=== PATIENT | female | born 1960 | race Two or more races ===

== ENCOUNTER 2023-05-28 03:38 | Observation (INO) | payer OTHER ==
[~2023-05-28] VITALS: Ht 170.2 cm; Wt 72.6 kg
[~2023-05-28 03:38] MED LIST: ASPI325 PO; LISI5 PO; PENVK500 PO; SULTRIDS PO; TRAM50 PO
[2023-05-28 04:22] LABS: BASOPHILS ABSOLUTE AUTO 0.06 K/mm3 (0.00-0.23); BASOPHILS PERCENT AUTO 1 % (0-2); EOSINOPHILS ABSOLUTE AUTO 0.07 K/mm3 (0.00-0.68); EOSINOPHILS PERCENT AUTO 1 % (0-6); Hematocrit 40.2 % (33.0-51.0); Hemoglobin 13.6 g/dL (11.5-16.0); Mean Corpuscular HGB 35.1 pg (26.0-34.0); Mean Corpuscular HGB Conc 33.8 g/dL (31.5-36.5); Mean Corpuscular Volume 104 fL (80-100); Mean Platelet Volume 11.4 fL (9.1-12.4); Platelet Count 113 K/mm3 (150-400); RDW Coefficient Variation 13.1 % (11.7-14.2); RDW Standard Deviation 50.1 fL (35.1-46.3); Red Blood Cell Count 3.87 M/mm3 (3.80-5.20); White Blood Cell Count 9.29 K/mm3 (4.00-11.30)
[2023-05-28 04:37] LABS: IMMATURE GRAN ABSOLUTE AUTO 0.02 K/mm3 (0.00-0.10); IMMATURE GRAN PERCENT AUTO 0 % (0-1); LYMPHOCYTES ABSOLUTE AUTO 4.86 K/mm3 (0.84-5.20); LYMPHOCYTES PERCENT AUTO 52 % (21-46); MONOCYTES PERCENT AUTO 10 % (4-13); NEUTROPHILS ABSOLUTE AUTO 3.38 K/mm3 (1.96-9.15); NEUTROPHILS PERCENT AUTO 36 % (41-73)
[2023-05-28 04:56] LABS: Ethanol (Alcohol), Blood, Med <3 mg/dL; Salicylate 2.6 mg/dL (2.8-20.0); Thyroxine (T4) 17.1 ug/dL (4.8-13.9)
[2023-05-28 05:03] LABS: Acetaminophen, Random <2.0 ug/mL (10.0-30.0); Alanine Aminotransfer (ALT/SGP 122 U/L (12-78); Albumin, Blood 3.8 g/dL (3.4-5.0); Albumin/Globulin Ratio 0.8 (0.8-1.8); Alk Phos 120 U/L (50-136); Anion Gap 8 mmol/L (6-16); Aspartate Aminotrans (AST/SGOT 140 U/L (12-37); Bilirubin, Total 1.6 mg/dL (0.1-1.0); Blood Urea Nitrogen 17 mg/dL (8-24); Bun/Creatinine Ratio 18.3 (12.0-20.0); CO2, Blood 26 mmol/L (21-32); Calcium, Blood 8.9 mg/dL (8.5-10.1); Chloride, Blood 107 mmol/L (98-108); Creatinine, Blood 0.93 mg/dL (0.40-1.00); Globulin, Blood 4.7 g/dL (2.2-4.0); Glomerular Filtration Rate 69 (60-); Glucose, Blood 159 mg/dL (70-99); Potassium, Blood 3.1 mmol/L (3.5-5.5); Sodium, Blood 141 mmol/L (136-145); Total Protein, Blood 8.5 g/dL (6.4-8.2)
[2023-05-28 08:26] LABS: Source, Urine Clean Catch
[2023-05-28 08:42] LABS: Appearance, Urine Clear (Clear); Bilirubin, Urine Neg (Neg); Blood, Urine Neg (Neg); Color, Urine Yellow (P-Yellow); Glucose Qualitative, Urine Neg (Neg); Ketones, Urine 1+ (Neg); Leukocyte Esterase, Urine 1+ (Neg); Nitrite, Urine Neg (Neg); Protein, Urine 2+ (Neg); Urobilinogen, Urine 2+ (Normal)
[2023-05-28 08:56] LABS: U Amphetamine Screen Not Detected; U Barbituate Screen Not Detected; U Benzodiazapine Screen Not Detected; U Buprenorphine Screen Not Detected; U Cannabinoids Screen DETECTED; U Cocaine Screen Not Detected; U Methadone Screen Not Detected; U Methamphetamine Screen Not Detected; U Opiates Screen Not Detected; U Oxycodone Screen Not Detected; U Phencyclidine Screen Not Detected; U Propoxyphene Screen Not Detected
[2023-05-28 08:59] LABS: Bacteria Mod /hpf
[2023-05-28 09:00] LABS: Red Blood Cells, Urine 0-2 /hpf (0-2)
[2023-05-28 09:01] LABS: Squamous Epithelial Cells Few /hpf (Few)
[2023-05-28 09:02] LABS: Mucus Heavy (0-Heavy); Transitional Epithelial Cells Rare /hpf (0-Rare)
[2023-05-28 14:45] VITALS: BP 165/83
== END 2023-05-28 22:39 | disposition home or self-care (01) ==
LOC: ER 03:38 → EOR 03:39
PROVIDERS: ADMIT Student in an Organized Health Care Education/Training Program
DX: F25.1 Schizoaffective disorder, depressive type (principal); K80.20 Calculus of gallbladder without cholecystitis without obstruction; E88.89 Other specified metabolic disorders; I25.2 Old myocardial infarction; Z88.8 Allergy status to other drugs, medicaments and biological substances; F19.10 Other psychoactive substance abuse, uncomplicated
CPT/HCPCS: 76705; 80053; 81001; 81025; 84436; 84443; 85025; 87086; 96372; 99285-25; A9270; G0378; G0480; J1790